=== PATIENT | male | born 1965 ===

== ENCOUNTER 2021-02-11 16:13 | Emergency (ER) | payer BC ==
[2021-02-11 16:17] VITALS: BP 119/82; PULSE 55; TEMP 98.6; BMI 22.6
[2021-02-11] MEDS ORDERED: IBUPROFEN 400 MG TABLET (FP) PO ONE (16:24)
== END 2021-02-11 18:19 | disposition home or self-care (01) ==
LOC: JER 16:13 → JERFT 16:13
DX: S62.602B Fracture of unspecified phalanx of right middle finger, initial encounter for open fracture (principal); S61.319A Laceration without foreign body of unspecified finger with damage to nail, initial encounter; S61.309A Unspecified open wound of unspecified finger with damage to nail, initial encounter
CPT/HCPCS: 73140-TC-RT-FY; 99284-25